=== PATIENT | female | born 1960 | race Caucasian/White ===

== ENCOUNTER 2017-12-06 09:17 | Outpatient (CLI) | payer BC ==
[2017-12-06 10:02] LABS: #Eosinphils 0.1 thou/uL (0.0-0.7); #Lymphocytes 0.9 thou/uL (1.20-3.40); #Monocytes 0.3 thou/uL (0.11-0.59); #Neutrophils 2.7 thou/uL (1.40-6.50); %Basophils 0.9 % (0.0-1.0); %Eosinophils 2.1 % (0.0-10.0); %Neutrophils 67.1 % (42.0-75.0); Hemoglobin 13.5 g/dL (12.0-16.0); Mean Corpuscular HGB CONC 32.7 g/dL (32.0-36.0); Mean Corpuscular Volume 88.8 fL (78.0-98.0); Mean Platelet Volume 6.5 fL (7.4-10.4); Platelet Count 161 thou/uL (130-400); RBC Distribution Width 11.8 % (11.5-14.5); Red Blood Cell (RBC) Count 4.67 mill/uL (4.20-5.40)
[2017-12-06 10:06] LABS: Prothrombin Time 12.8 SEC (12.0-14.7)
[2017-12-06 10:13] LABS: ALT (SGPT) 15 U/L (8-55); AST (SGOT) 17 U/L (5-34); Albumin 4.2 g/dL (3.5-5.0); Alkaline Phosphatase 50 U/L (40-150); Anion Gap 11 mmol/L (10-20); BUN (Urea Nitrogen) 9 mg/dL (9.8-20.1); Bilirubin, Total 0.4 mg/dL (0.2-1.2); Calc. Creatinine Clearance 0 mL/min (70-130); Calcium 9.7 mg/dL (7.8-10.44); Carbon Dioxide 28 mmol/L (22-29); Chloride 109 mmol/L (98-107); Estimated GFR-MDRD 74; Glucose 105 mg/dL (70-105); Potassium 4.9 mmol/L (3.5-5.1); Protein, Total 7.2 g/dL (6.0-8.3); Sodium 143 mmol/L (136-145)
--- NOTE | 2017-12-06 11:47 | ULT ---
HEPATIC ULTRASOUND WITH HEPATIC DOPPLER EVALUATION WITH SPECTRAL ANALYSIS AND COLOR FLOW EVALUATION: DATE: 12/06/17. HISTORY: Hepatitis C. FINDINGS: The visualized proximal abdominal aorta, visualized portions of the IVC, visualized portions of the p ancreas, liver, and spleen demonstrate a normal sonographic appearance. A small amount of echogenic material is seen in the gallbladder lumen suggesting a small amount of sl udge. There is no gallbladder wall thickening or pericholecystic fluid. The common duct measures 0. 4 cm in diameter. HEPATIC DOPPLER EVALUATION WITH SPECTRAL ANALYSIS AND COLOR FLOW EVALUATION: There is normal directional flow seen within the portal, hepatic, and splenic veins with arterial wav eforms seen within the hepatic and splenic arteries. IMPRESSION: 1. Small amount of sludge within the gallbladder. No gallbladder calculi are seen, and the common d uct is normal in caliber. 2. Normal directional flow is seen within the portal, hepatic, and splenic veins. However, the left portal vein was not imaged on this exam. POS: [facility]
== END 2017-12-06 09:18 | disposition home or self-care (01) ==
LOC: SCSULT 09:17
PROVIDERS: ATTEND Internal Medicine
DX: Z23 Encounter for immunization (principal); B18.2 Chronic viral hepatitis C; K82.9 Disease of gallbladder, unspecified; Z80.0 Family history of malignant neoplasm of digestive organs
CPT/HCPCS: 36415; 76705; 80053; 85025; 85610; 87521

== ENCOUNTER 2018-08-11 08:59 | Outpatient (CLI) | payer BC ==
--- NOTE | 2018-08-11 09:30 | BD ---
Exam: DEXA bone density study: HISTORY: Osteoporosis, history of prior lumbar fusion surgery No biofuels technology manager please but this table performed without the no spine report Right hip femoral neck 0.650 T score -1.8 Total 0.869 T score -0.6 Evidence for osteopenia with increased risk for fracture Left hip femoral neck 0.67-T score -2.0 Total 0.893--0.4 evidence for osteopenia with increased risk for fracture.
== END 2018-08-11 09:00 | disposition home or self-care (01) ==
LOC: BICMAMMO 08:59
PROVIDERS: ATTEND Internal Medicine
DX: Z13.820 Encounter for screening for osteoporosis (principal); M85.851 Other specified disorders of bone density and structure, right thigh; M85.852 Other specified disorders of bone density and structure, left thigh
CPT/HCPCS: 77080